=== PATIENT | female | born 1970 | race Caucasian/White ===

== ENCOUNTER 2017-06-17 13:39 | Emergency (ER) | payer OTHER, SELFPAY ==
[2017-06-17] MEDS ORDERED: Sodium Chloride 0.9% 1,000 ML IV ONE ×2 (14:20→17:39)
[2017-06-17] MEDS ORDERED: Sodium Chloride 0.9% 1,000 ML ONE ×2 (15:24→18:08)
[2017-06-17] MEDS ORDERED: (Novolin R) Insulin Human Regular 100 units/ml vial IV STA ×3 (15:33→19:43)
[2017-06-17 15:35] LABS: BASO % 0.6 % (0.0-2.0); EOS # 0.2 K/uL (0.0-0.7); EOS % 2.4 % (0.0-4.0); HEMATOCRIT 39.5 % (34.0-47.0); LYMPH # 1.7 K/uL (1.0-4.3); LYMPH % 20.8 % (20.0-40.0); MEAN CORPUSCULAR HEMOGLOBIN 30.2 pg (27.0-31.0); MEAN CORPUSCULAR HGB CONC 34.3 g/dL (33.0-37.0); MEAN PLATELET VOLUME 8.6 fL (7.2-11.7); MONO # 0.4 K/uL (0.0-0.8); MONO % 5.3 % (0.0-10.0); NRBC % 0.1 % (0.0-2.0); RED CELL DISTRIBUTION WIDTH 13.4 % (11.5-14.5)
[2017-06-17 15:49] LABS: CHLORIDE 93 mmol/L (98-107); SODIUM 134 mmol/L (132-148)
[2017-06-17 15:50] LABS: POTASSIUM 4.8 mmol/L (3.6-5.2)
[2017-06-17 15:52] LABS: ALB/GLOB RATIO 1.2 (1.0-2.1); ALKALINE PHOSPHATASE 143 U/L (38-126); AST/SGOT 143 U/L (14-36); BILIRUBIN,TOTAL 0.8 mg/dL (0.2-1.3); BLOOD UREA NITROGEN 12 mg/dL (7-17); CARBON DIOXIDE 26 mmol/L (22-30); GFR AFRICAN-AMERICAN > 60; TOTAL PROTEIN 6.9 g/dL (6.3-8.3)
[2017-06-17 15:53] LABS: ALT/SGPT 157 U/L (9-52); CALCIUM 8.4 mg/dl (8.6-10.4)
[2017-06-17 15:59] LABS: RBC URINE 17 /hpf (0-3); URINE BACTERIA RARE (<OCC); URINE BILIRUBIN NEGATIVE (NEGATIVE); URINE BLOOD 2+ (NEGATIVE); URINE COLOR Straw (YELLOW); URINE GLUCOSE (UA) 3+ mg/dL (Normal); URINE KETONE NEGATIVE (NEGATIVE); URINE LEUKOCYTE ESTERASE 1+ Leu/uL (Negative); URINE PROTEIN NEGATIVE (NEGATIVE); URINE UROBILINOGEN NORMAL mg/dL (0.2-1.0); WBC URINE 4 /hpf (0-5)
[2017-06-17 16:19] LABS: GLUCOSE,RANDOM 641 mg/dL (65-105)
[2017-06-17] MEDS ORDERED: (Novolin R) Insulin Human Regular 100 units/ml vial ONE ×3 (16:36→19:47)
[2017-06-17 18:23] VITALS: RESP 20; O2SAT 98
--- NOTE | 2017-06-17 18:35 | C.PDOC ---
History Of Present Illness 47 y/o female presents with increased blood sugar at home to was over 500. Patient is not a diabetic but has a hx of morbid obesity. Patient also c/o polyuria and polydispsia for 1 week. Patient also notes unintentional weight lost. Denies fever, chills, abdominal pain, or N/V/D. No chest pain, SOB, or palpitations. Time Seen by Provider: 06/17/17 13:58 Chief Complaint (Nursing): High Blood Sugar History Per: Patient History/Exam Limitations: no limitations Onset/Duration Of Symptoms: Hrs Current Symptoms Are (Timing): Still Present Severity: Mild Recent travel outside of the [place]: No Additional History Per: Patient Past Medical History Reviewed: Historical Data, Nursing Documentation, Vital Signs Vital Signs: Last Vital Signs Temp 97.7 F 06/17/17 18:23 Pulse 93 H 06/17/17 18:23 Resp 20 06/17/17 18:23 BP 162/97 H 06/17/17 18:23 Pulse Ox 98 06/17/17 19:44 - Medical History PMH: Anemia, HTN Denies: Chronic Kidney Disease - [facility] TRANSFUSE NONAUT RED BLOOD CELLS IN PERIPH VEIN, PERC (12/23/15) Family History: States: Unknown Family Hx - Social History Hx Alcohol Use: No Hx Substance Use: No - Immunization History Hx Tetanus Toxoid Vaccination: No Hx Influenza Vaccination: No Hx Pneumococcal Vaccination: No Review Of Systems Except As Marked, All Systems Reviewed And Found Negative. Constitutional: Positive for: Other (high blood sugar. Polyuria and polydipsia) . Negative for: Fever, Chills Cardiovascular: Negative for: Chest Pain, Palpitations Respiratory: Negative for: Shortness of Breath Gastrointestinal: Positive for: Constipation (Improves with regular laxatives.) . Negative for: Nausea, Vomiting, Abdominal Pain, Diarrhea Physical Exam - Physical Exam Appears: Non-toxic, No Acute Distress, Other (Morbidly obese, mostly central obesity) Skin: Warm, Dry Head: Atraumatic, Normacephalic Eye(s): bilateral: Normal Inspection Oral Mucosa: Dry Chest: Symmetrical Cardiovascular: Rhythm Regular, No Murmur Respiratory: Normal Breath Sounds, No Rales, No Rhonchi, No Wheezing Gastrointestinal/Abdominal: Soft, No Tenderness Back: Normal Inspection, No CVA Tenderness Neurological/Psych: Oriented x3, Normal Speech, Normal Cognition ED Course And Treatment - Laboratory Results Result Diagrams: 06/17/17 15:28 06/17/17 15:28 Lab Interpretation: Normal (normal bicarb, UA neg.) Urine POC: Negative O2 Sat by Pulse Oximetry: 98 (RA) Pulse Ox Interpretation: Normal Progress Note: 1545: insulin 10 IV, --> glu 391. 1900: insulin 10 IV, --> glu 321. 2000: insulin 10 IV, --> glu 150. brief episodes of leg cramps, resolved w KCL 40 MEQ PO. NS x 1 liter IV Medical Decision Making Medical Decision Making: Plans: * Blood labs * Novolin R * IV fluids * UA new onsety Type II DM, prob related to moribid obesity/central obesity high risk for DONTRELL as well NO s/S of DKA glu controlled w 2 rounds of insulin IV Start Metformin and f/s log Consider eval for DONTRELL Consider referral for Bariatric Surgery in pt with BMI > 35 and + DM Start Metformin and FS BID AC and f/u wtih PMD Disposition Doctor Will See Patient In The: Office Counseled Patient/Family Regarding: Studies Performed, Diagnosis - Disposition Disposition: HOME/ ROUTINE Disposition Time: 21:00 Condition: GOOD Forms: [facility] (Swedish) - Clinical Impression Clinical Impression: Hyperglycemia, New onset type 2 diabetes mellitus - Scribe Statement The provider has reviewed the documentation as recorded by the Scribjudi king All medical record entries made by the Scribe were at my direction and personally dictated by me. I have reviewed the chart and agree that the record accurately reflects my personal performance of the history, physical exam, medical decision making, and the department course for this patient. I have also personally directed, reviewed, and agree with the discharge instructions and disposition.
[2017-06-17] MEDS ORDERED: Potassium Chloride 10 mEq ER Tab PO STA (20:30)
[2017-06-17] MEDS ORDERED: Potassium Chloride 20 mEq ER Tab PO ONE (20:38)
[2017-06-17 21:00] VITALS: BP 114/77; PULSE 100; TEMP 98.2
== END 2017-06-17 21:44 | disposition home or self-care (01) ==
LOC: C.ER 13:39
DX: E11.65 Type 2 diabetes mellitus with hyperglycemia (principal); E66.01 Morbid (severe) obesity due to excess calories; I10 Essential (primary) hypertension
CPT/HCPCS: 80053; 81001; 82009; 82948; 83036; 84703; 85025; 96361; 96374; 96376; 99285; J7040